=== PATIENT | male | born 1940 ===

== ENCOUNTER 2017-04-04 06:40 | Day surgery (SDC) | payer MEDICARE ==
[2017-03-28 08:40] VITALS: BMI 21.7
[2017-04-04 07:14] LABS: HEMOGLOBIN 15.8 g/dL (14.0-18.0); MEAN CELL VOLUME 91.8 fl (80.0-105.0); MEAN CORPUSCULAR HEMOGLOBIN 32.5 pg (25.0-35.0); MEAN CORPUSCULAR HGB CONC 35.4 g/dl (31.0-37.0); MEAN PLATELET VOLUME 9.4 fl (7.0-11.0); RBC 4.86 10^6/uL (3.5-6.1); RED CELL DISTRIBUTION WIDTH 12.9 % (11.5-14.5); WHITE BLOOD COUNT 5.5 10^3/ul (4.5-11.0)
[2017-04-04 07:29] LABS: INR 1.04 (0.93-1.08); PARTIAL THROMBOPLASTIN TIME 36.3 Seconds (25.1-36.5)
[2017-04-04 07:30] LABS: BLOOD UREA NITROGEN 14 mg/dL (7-21); CALCIUM 10.4 mg/dL (8.4-10.5); GFR AFRICAN-AMERICAN > 60; GFR NON-AFRICAN AMERICAN > 60
[2017-04-04] MEDS ORDERED: Bupivacaine 0.5% Inj(30mL) ONE (09:08)
[2017-04-04] MEDS ORDERED: Midazolam 2 MG/2 ML VIAL ONE (09:10)
[2017-04-04] MEDS ORDERED: Glycopyrrolate 0.2 mg/ml (2ml vial) ONE (09:10)
[2017-04-04] MEDS ORDERED: Propofol 10 mg/ml Inj (20 ML) ONE (09:10)
[2017-04-04] MEDS ORDERED: Lidocaine 1% Inj (20ml) ONE (09:11)
[2017-04-04] MEDS ORDERED: Succinylcholine 200 mg/10 ml Inj IV ONE (09:11)
[2017-04-04] MEDS ORDERED: Rocuronium 10 mg/ml (5 ml) ONE (09:11)
[2017-04-04] MEDS ORDERED: Neostigmine Methylsulfate 3mg/3ml Syringe IV ONE (09:14)
[2017-04-04] MEDS ORDERED: CeFAZolin 1 gm in NS 100ml IVPB ONE (09:33)
[2017-04-04] MEDS ORDERED: Iohexol 240 (50 ml) ONE (09:34)
[2017-04-04] MEDS ORDERED: Bupivacaine 0.5% Inj(30mL) IJ ONE ×2 (10:09)
[2017-04-04] MEDS ORDERED: Iohexol 240 (50 ml) IVP ONE (10:25)
[2017-04-04] MEDS ORDERED: oxyCODONE 5 mg Immediate Release Tab PO PRN (11:24)
[2017-04-04] MEDS ORDERED: HYDROmorphone 0.5 mg/0.5 ml ISec IVP PRN (11:29)
[2017-04-04] MEDS ORDERED: HYDROmorphone 0.5 mg/0.5 ml ISec ONE (11:29)
--- NOTE | 2017-04-04 11:29 | PCM.SURG1 ---
Surgeon's Initial Post Op Note - Surgeon's Notes Surgeon: Dr. Nazario Junior Mechanical Engineer: Bettina Ku, PGY2. SHAKIRA Cheek Type of Anesthesia: General Endo Pre-Operative Diagnosis: Chronic cholecystitis with biliary colic Operative Findings: cirrhotic liver, dense adhesion around the gallbladder and the liver, thickened gallbladder wall Post-Operative Diagnosis: same Operation Performed: laparoscopic cholecystectomy, lysis of adhesions, and intraoperative cholangiogram Specimen/Specimens Removed: gallbladder Estimated Blood Loss: EBL {In ML}: 10 Blood Products Given: N/A Drains Used: No Drains Post-Op Condition: Good Date of Surgery/Procedure: 04/04/17 Time of Surgery/Procedure: 09:30
[2017-04-04] MEDS ORDERED: Lactated Ringer's 1,000 ML IV SCH (11:30)
[2017-04-04 11:54] VITALS: RESP 18
--- NOTE | 2017-04-04 13:14 | RAD ---
PROCEDURE: Operative cholangiogram HISTORY: Laproscopic cholecystectomy COMPARISON: TECHNIQUE: Fluoroscopy was provided in the operating room. 22.1 seconds of fluoro time were use. Four images were submitted the FINDINGS: There is opacification of the common duct with reflux into the pancreatic duct. There are no retained stones. Contrast flows into the duodenum without obstruction IMPRESSION: As above
[2017-04-04 13:18] VITALS: TEMP 98; O2SAT 98
[2017-04-04 14:41] VITALS: BP 123/73; PULSE 78
--- NOTE | 2017-04-07 06:22 | OP ---
PROCEDURE DATE: 04/04/2017 PREOPERATIVE DIAGNOSIS: Chronic cholecystitis with cholelithiasis. POSTOPERATIVE DIAGNOSIS: Acute and chronic cholecystitis and cholelithiasis. PROCEDURE: Laparoscopic cholecystectomy with intraoperative cholangiogram. SURGEON: Lucien Nazario MD IT LEAD: Dr. Ku. TYPE OF ANESTHESIA: General endotracheal anesthesia. ANESTHESIA ADMINISTERED BY: Hermes Blackmon MD. ESTIMATED BLOOD LOSS: Minimal. SPECIMEN: Gallbladder and gallstone. INDICATIONS: The patient is a 77-year-old male with history of recurrent right upper quadrant abdominal discomfort and pain. Patient recently had been to [facility] where he had a acute attack and spent a few days in a hospital. Patient now comes in for laparoscopic cholecystectomy. DESCRIPTION OF PROCEDURE: The patient was brought to the operating room, placed on the operating table in supine position. The patient was connected to the EKG, blood pressure and pulse oximetry monitors. The patient then underwent general endotracheal anesthesia, and was prepped and draped in the usual sterile fashion. First, a standard time-out procedure took place and everybody in the room agreed as to the patient's identity, diagnoses, and procedure to be performed. First, using 2 towel clamps, the anterior abdominal wall was elevated and Veress needle was inserted through a small incision above the umbilicus after the area was infiltrated with Marcaine mixed with lidocaine. Once pneumoperitoneum was obtained, a 12-mm trocar was inserted through that incision into the abdominal cavity. Careful evaluation of the abdominal cavity revealed the presence of liver with fairly rock surface indicating some stage of cirrhosis. There was also increased vascularity noted throughout the portion of the stomach and the liver. I then proceeded to place a second 5 mm trocar in the subxiphoid position, and carefully proceeded with dissection. There were adhesion of the omentum on top of the gallbladder which were carefully taken down using electrocautery. Once the gallbladder was cleared from those adhesions, it was elevated upward to the infundibulum, and the area of the cystic duct was dissected out. The cystic duct and the cystic artery were carefully from each other and dissected out, and once clearly visualized, I then proceeded with placing clip on the proximal cystic duct, made a small incision on the side of it and inserted a cholangiocatheter into the cystic duct. Now under direct visualization with fluoroscopy, cholangiogram was obtained revealing prompt flow of dye into the entire biliary tree and emptying without any obstructions. Of note is that the common bile duct as well as pancreatic duct appeared to be ending up on the common portion of the duct as it was noted that the dye from the cholangiogram entered also the pancreatic duct. There was no evidence of obstruction. Now, cholangiocatheter was removed and cystic duct was clipped distally and transected, so was the cystic artery which was clipped proximally and distally and transected. Using electrocautery, the gallbladder was carefully taken off its liver bed. There was some dense adhesions in the area of the dome of the gallbladder to the liver. They were also carefully and tediously taken down, and the gallbladder was removed. It was placed in an Endo Catch bag and removed through the periumbilical incision. The right upper quadrant was now copiously irrigated. All the irrigant fluid was suctioned out. There was excellent hemostasis. The remaining portion of the abdomen was also evaluated. There was no abnormalities noted. The port sites were also evaluated and there was no bleeding from the port sites. At this point, the pneumoperitoneum was released. Trocars removed and the wounds closed using 0 Vicryl for the fascia, 3-0 Vicryl for the subcutaneous tissue and 4-0 Monocryl for the skin. A sterile Dermabond dressing was applied to the wound. The patient tolerated the procedure well and there were no complications. The patient was awakened, extubated and transferred to the recovery room for further observation. Lucien Nazario MD
== END 2017-04-04 16:45 | disposition home or self-care (01) ==
LOC: SDS 06:40
PROVIDERS: ATTEND General Practice
DX: K80.12 Calculus of gallbladder with acute and chronic cholecystitis without obstruction (principal); I10 Essential (primary) hypertension; E11.9 Type 2 diabetes mellitus without complications; Z87.891 Personal history of nicotine dependence
CPT/HCPCS: 36415; 47563; 74300; 80048; 85027; 85610; 85730; 88304; J0330; J0690; J1170; J1885; J2250; J2405; J2704; J2710; J2765; J3010; J7120 ×2; Q9966